=== PATIENT | male | born 1970 | race Caucasian/White ===

== ENCOUNTER 2016-08-26 14:16 | Emergency (ER) | payer OTHER ==
[~2016-08-26] VITALS: Ht 180.3 cm; Wt 102.1 kg
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
[2016-08-26] MEDS ORDERED: PERCOCET 5-3251 EACH PO (15:27)
[2016-08-26 15:35] VITALS: BP 164/92
--- NOTE | 2016-08-26 16:04 | RADIOLOGY REPORT ---
EXAMINATION: XR KNEE, LEFT CLINICAL INFORMATION: Fall. MCL sprain. COMPARISON: None. TECHNIQUE: 4 views with 5 images of the left knee performed. FINDINGS: No evidence of effusion. The alignment is normal. No joint space narrowing or acute osseous abnormality is seen. IMPRESSION: Normal examination. No evidence of joint effusion.
== END 2016-08-26 15:36 ==
LOC: ERH 14:16
DX: S83.412A Sprain of medial collateral ligament of left knee, initial encounter (principal); V86.59XA Driver of other special all-terrain or other off-road motor vehicle injured in nontraffic accident, initial encounter
CPT/HCPCS: 73562-LT